=== PATIENT | female | born 1975 | race Caucasian/White ===

== ENCOUNTER 2017-06-05 21:22 | Emergency (ER) | payer OTHER, SELFPAY ==
[~2017-06-05] VITALS: Ht 165.1 cm; Wt 65.9 kg
[~2017-06-05 21:22] MED LIST: COLA100C5 PO; FERR1TAB8 PO; FOLI1TAB4 PO; NAPR500T3 PO; VITA100067 PO; VITA100L PO; VITA500T PO; VITMTA PO; ZOFR20TA PO
[2017-06-05] MEDS ORDERED: NAPROXEN 250 MG TAB PO ONE (22:45)
[2017-06-05 23:24] VITALS: BP 128/62
--- NOTE | 2017-06-06 06:58 | REP ---
Right foot four views : There is no fracture or dislocation. Mineralization and joint spaces are normal. There are no calcifications or foreign bodies. Impression: Negative right foot . Signed by Julián Frederick MD 06/06/2017 06:50 A
== END 2017-06-05 23:45 | disposition home or self-care (01) ==
LOC: M ED 21:22
DX: S90.31XA Contusion of right foot, initial encounter (principal); W23.1XXA Caught, crushed, jammed, or pinched between stationary objects, initial encounter; Y92.019 Unspecified place in single-family (private) house as the place of occurrence of the external cause; Y93.01 Activity, walking, marching and hiking; Y99.8 Other external cause status; Z87.891 Personal history of nicotine dependence; Z79.899 Other long term (current) drug therapy; Z88.0 Allergy status to penicillin

== ENCOUNTER 2017-06-20 21:45 | Emergency (ER) | payer SELFPAY ==
[~2017-06-20] VITALS: Ht 165.1 cm; Wt 65.9 kg
[2017-06-21] MEDS ORDERED: ROBA500T PO (01:21)
[2017-06-21] MEDS ORDERED: IBUP80TA PO (01:21)
[2017-06-21] MEDS ORDERED: NORCOTAB PO (01:21)
[2017-06-21] MEDS ORDERED: IBUPROFEN 800 MG TAB PO ONE (01:30)
[2017-06-21] MEDS ORDERED: METHOCARBAMOL 500 MG TAB PO ONE (01:30)
[2017-06-21] MEDS ORDERED: NORCO, ANEXSIA 5/325MG TABLET (HYDROcodone/ACETAMINOPHEN) PO ONE (01:30)
[2017-06-21 01:39] VITALS: BP 141/71
== END 2017-06-21 01:45 | disposition home or self-care (01) ==
LOC: M ED 21:45
DX: S23.3XXA Sprain of ligaments of thoracic spine, initial encounter (principal); F33.8 Other recurrent depressive disorders; X58.XXXA Exposure to other specified factors, initial encounter; Y92.9 Unspecified place or not applicable; Y99.9 Unspecified external cause status; Y93.9 Activity, unspecified; Z98.84 Bariatric surgery status; Z88.0 Allergy status to penicillin; Z79.899 Other long term (current) drug therapy

== ENCOUNTER 2017-06-23 13:03 | Observation (INO) | payer SELFPAY ==
[~2017-06-23] VITALS: Ht 165.1 cm; Wt 75.7 kg
[~2017-06-23 13:03] MED LIST changes: +IBUP80TA PO; +NORCOTAB PO; +ROBA500T PO
[2017-06-23] MEDS ORDERED: NAPR220C PO (13:20)
[2017-06-23] MEDS ORDERED: ONDANSETRON 4MG/2ML VIAL (J2405) IV ONE (14:00)
[2017-06-23] MEDS ORDERED: MORPHINE 4 MG/ML 1ML SYRINGE IV ONE (14:00)
[2017-06-23 14:01] LABS: INR 1.02
[2017-06-23 14:02] LABS: CONTROL LINE HCG INT CTR LINE PRESENT
[2017-06-23 14:04] LABS: ADD MORPHOLOGY? YES; BASO % 0.3 % (0.0-1.0); LARGE UNSTAINED CELL # 0.1 K/mm3 (0.0-0.4); LARGE UNSTAINED CELL % 1.3 % (0.0-4.0); LYMPH # 0.9 K/mm3 (1.5-4.5); LYMPH % 21.3 % (24.0-44.0); MEAN CORPUSCULAR HEMOGLOBIN 15.2 pg (27.0-33.0); MEAN CORPUSCULAR HGB CONC 25.2 g/dl (32.0-36.5); MEAN CORPUSCULAR VOLUME 60.4 fl (80.0-96.0); MONO # 0.2 K/mm3 (0.0-0.8); MONO % 4.6 % (0.0-5.0); NEUTROPHILS # 2.8 K/mm3 (1.8-7.7); NEUTROPHILS % 71.6 % (36.0-66.0); PLATELET COUNT, AUTOMATED 373 k/mm3 (150-450); RED CELL DISTRIBUTION WIDTH 18.5 % (11.5-14.5); WHITE BLOOD COUNT 3.9 K/mm3 (4.0-10.0)
[2017-06-23 14:10] LABS: ALBUMIN 3.7 GM/DL (3.2-5.2); ALBUMIN/GLOBULIN RATIO 1.23 (1.00-1.93); ALKALINE PHOSPHATASE 60 U/L (45-117); ALT/SGPT 16 U/L (12-78); ANION GAP 9 MEQ/L (8-16); AST/SGOT 15 U/L (15-37); BILIRUBIN,DIRECT 0.1 MG/DL (0.0-0.2); BILIRUBIN,TOTAL 0.5 MG/DL (0.2-1.0); BLOOD UREA NITROGEN 15 MG/DL (7-18); CALCIUM LEVEL 8.4 MG/DL (8.5-10.1); CARBON DIOXIDE LEVEL 22 MEQ/L (21-32); CHLORIDE LEVEL 113 MEQ/L (98-107); CREATININE FOR GFR 0.79 MG/DL (0.55-1.02); GLOMERULAR FILTRATION RATE > 60.0 (>58); GLUCOSE, FASTING 88 MG/DL (70-105); POTASSIUM SERUM 4.2 MEQ/L (3.5-5.1); SODIUM LEVEL 144 MEQ/L (136-145); TOTAL PROTEIN 6.7 GM/DL (6.4-8.2)
[2017-06-23 14:26] LABS: HYPOCHROMASIA 2+; MICROCYTOSIS 4+
[2017-06-23 14:27] LABS: ANISOCYTOSIS 2+; OVALOCYTES 1+; POIKILOCYTOSIS 1+; POLYCHROMASIA 1+; TEAR DROP CELLS 1+
[2017-06-23 14:28] LABS: TARGET CELLS 1+
[2017-06-23] MEDS ORDERED: ISOVUE-370 76% 100ML VIAL (Q9967) As Ordered ONE (14:33)
[2017-06-23] MEDS ORDERED: NAPR1TAB41 PO (15:09)
[2017-06-23] MEDS ORDERED: IBUP1TAB7 PO (15:09)
[2017-06-23] MEDS ORDERED: HYDR-3713 PO (15:09)
[2017-06-23] MEDS ORDERED: METH1TAB40 PO (15:09)
[2017-06-23] MEDS ORDERED: ACETAMINOPHEN TAB 650MG DOSE (2X325MG) PO PRN (17:15)
[2017-06-23] MEDS ORDERED: MORPHINE 2 MG/ML 1ML SYRINGE IV ONE (18:45)
[2017-06-23] MEDS ORDERED: LIDOCAINE 5% (LIDODERM) PATCH TD PRN (19:15)
[2017-06-23] MEDS ORDERED: MORPHINE 2 MG/ML 1ML SYRINGE IV PRN (19:15)
[2017-06-23] MEDS ORDERED: IPRATROPIUM 0.5MG/ALBUTEROL 2.5MG INH SOL UD 3ML (DUONEB)(J7620) NEB PRN (19:30)
[2017-06-23] MEDS ORDERED: **NOTE PATIENT COMMENT** MISC XX PRN (21:00)
--- NOTE | 2017-06-23 21:09 | HPE ---
DATE OF ADMISSION: 06/23/2017 CHIEF COMPLAINT: A 42-year-old female coming in complaining of shortness of breath with history of menometrorrhagia. HISTORY OF PRESENT ILLNESS: This is a 42-year-old female with significant past medical history of menometrorrhagia, comorbidities of depression and chronic anemia, who presents complaining of shortness of breath. The patient states that her shortness of breath is chronic in nature. She is chronically tired but she has a history of menometrorrhagia since the age of [age] years old, since starting her menses. The patient states that she has menses every 16 days and last for 7-8 days. Unfortunately, she utilizes two heavy maxi-pads, in addition, maxi-super tampon usage without control. She had four children; last child was born at the age of 19 via section. The patient denies any history of coagulopathy such as deep venous thrombosis (DVT) or pulmonary embolism (PE) in the past, or miscarriages. The patient does not know anything about her family as she is adopted. Otherwise, she denies any complaints other than chronic shortness of breath, chronically being tired, easy bruising, and clotting with menses. The patient had had blood transfusion in the past due to severe anemia, hemoglobin of three. The patient currently denies any chest pain. Based on her home medication, the patient seems to be taking ibuprofen and naproxen which we will recommend to limiting its use. The patient states that her last day of menses was 3-4 days ago. Currently she is not having blood flow. REVIEW OF SYSTEMS: 10-point review of systems is negative other than those described in the history of present illness (HPI). PAST MEDICAL HISTORY: 1. Menometrorrhagia. 2. Depression, for which currently she is not on any medications. PAST SURGICAL HISTORY: 1. Gastric bypass. 2. section. 3. Tubal ligation. 4. Breast reduction. SOCIAL HISTORY: The patient denies smoking. She quit 10 years. Denies any alcohol or drug abuse. FAMILY MEDICAL HISTORY: She does not know as she is adopted. ALLERGIES: She has allergic reaction to PENICILLIN, which was told to be hives, but she is not really sure. MEDICATIONS FROM HOME: - acetaminophen/hydrocodone 3/325 one tablet by mouth every six hours as needed for pain - ibuprofen 800 mg every six hours as needed for pain - methocarbamol 500 mg two tablets every six hours as needed for pain - naproxen 220 mg by mouth twice a day as needed for pain PHYSICAL EXAMINATION: VITAL SIGNS: Temperature initially was 97.4, heart rate last known is 56, respiratory rate was 16 on my examination, blood pressure 137/60, saturating 99-100% on room air. HEENT: Normocephalic. No trauma. Inspection of the eyes, nose and throat is within normal. Pupils equal, round, and reactive to light and accommodation. Mucosa is moist. NECK: Supple. No tracheal deviation. CARDIAC: S1, S2. Regular rate and rhythm. Pulses present. LUNGS: Equal air entry. I did not hear any wheezes, rales or rhonchi. ABDOMEN: Soft, nontender. Bowel sounds present. EXTREMITIES: Lower extremities with no significant pitting edema. NEUROLOGIC: The patient is currently awake, alert, and oriented times three. Cranial nerves grossly intact. Motor and sensory is intact. Normal mood and affect for current situation. EKG: The patient had sinus, heart rate 68. No ST elevation. DIAGNOSTIC STUDIES: The patient had WBC of 3.9, hemoglobin and hematocrit are 5.1 and 20.4, platelet count is 373. Complete metabolic profile is within normal except for chloride is 113, and calcium 8.4. Otherwise, complete metabolic profile is within normal. Lactate is within normal at 0.9. Cardiac enzymes are also within normal. BNP is normal. Lipase is within normal. HCG is negative. Coagulation study: The patient had INR, PT, and PTT all within normal as well. The patient has been typed and crossed, and she is planned to receive a total of two units of red blood cell transfusion. We will repeat hemoglobin and hematocrit and transfuse as necessary. IMAGING: The patient had a chest x-ray which showed, as per radiology, no acute cardiopulmonary changes. The patient also had vascular ultrasound of the lower extremities which showed no Doppler venous evidence of deep venous thrombosis (DVT) in the bilateral lower extremities. The patient also had CT angiogram; as per radiology showed no evidence of pulmonary embolism. Aorta without aneurysm or dissection. There is now pathologic sized mediastinal or hilar adenopathy. No bony abnormality. Lungs are clear. Abdominal CT as per radiology showed splenomegaly with a splenic length up to 14.1 cm and splenic index measuring 985, with normal range less than 480. She has splenomegaly. Arterial phase imaging limits evaluation of splenic architecture. No definite pathologic-sized abdominal or pelvic adenopathy. I see no ascites, colitis, abscess or free air. Gastric bypass is noted. No signs of appendicitis, diverticulitis or mass or other acute finding. Airway intact, and the bones are unremarkable. ASSESSMENT AND PLAN: This is a 42-year-old female with significant past medical history of menometrorrhagia, last day of menses was 2-3 days ago, who chronically has shortness of breath and fatigue. She is presenting complaining of fatigue and shortness of breath, noted to have hemoglobin of five. 1. Symptomatic anemia most likely secondary due to menometrorrhagia. The patient is receiving one unit of red blood cell transfusion at this time, and is awaiting for a second unit of blood transfusion. We will monitor her hemoglobin and hematocrit (H and H) and transfuse as needed with the goal of seven at this time. Telemetry, respiratory treatment as needed, oxygen therapy as needed. I did speak to Dr. Gonzalez, the obstetric ship manager, who did not believe that the patient needed to be evaluated in the hospital by his service. He recommends that the patient be seen as an outpatient and obstetrics/gynecology (DIRT CONTRACTOR) to be reconsulted as needed for any acute process. As Dr. Gonzalez is carbon cleaner, we will endorse to the following physician that he is available for consultation and emergent evaluation of the patient as per his recommendation. 2. Chronic pain. Avoid non-steroidal anti-inflammatory drugs (NSAIDs). Resume home regimen of hydrocodone/acetaminophen. 3. Splenomegaly. Most likely secondary to problem number one. May have outpatient followup and evaluation. 4. Sequential compression devices for deep venous thrombosis (DVT) prophylaxis.
[2017-06-23 21:45] VITALS: BP 143/74
[2017-06-23] MEDS: NORCO, ANEXSIA 5/325MG TABLET (HYDROcodone/ACETAMINOPHEN) PO PRN (22:42)
[2017-06-23] MEDS: IPRATROPIUM 0.5MG/ALBUTEROL 2.5MG INH SOL UD 3ML (DUONEB)(J7620) NEB SCH (23:50)
[2017-06-24] VITALS (8 sets, daily range): BP systolic 120–143; BP diastolic 61–88
[2017-06-24] MEDS: IPRATROPIUM 0.5MG/ALBUTEROL 2.5MG INH SOL UD 3ML (DUONEB)(J7620) NEB SCH (00:01)
[2017-06-24] MEDS: NORCO, ANEXSIA 5/325MG TABLET (HYDROcodone/ACETAMINOPHEN) PO PRN ×3 (05:16→21:04)
--- NOTE | 2017-06-24 07:35 | REP ---
CT ABDOMEN AND PELVIS WITH IV CONTRAST: 06/23/2017. Clinical history: Upper abdominal pain. Technique: The patient received a bolus of 100 mL of Isovue 370 scanning through the abdomen and pelvis. Coronal and sagittal reconstructions provided. Findings: No prior studies. CT abdomen: Lung bases are clear. There is no cardiomegaly, pericardial thickening or effusion. Small hiatal hernia. Gastric bypass my are seen. There is no hepatomegaly. There is one peripheral hypodense focus in the left lobe of the liver about 13 mm which could be a small hemangioma as it has some peripheral focus of enhancement in its lateral margin could be a proteinaceous cyst too in the posterior old lateral liver. There is a 10 mm low density nodule on image 28. There is no subcapsular hematoma, other nodule or mass, biliary dilatation or adjacent ascites. There is splenomegaly with the spleen measuring 14.1 x 5.1 x 13.7 cm giving calculated splenic index of 985. It has a heterogeneous enhancement consistent with arterial phase imaging. The aorta is without aneurysm or dissection. The celiac axis, SMA, renal arteries and the ARMANDO are grossly intact. Small bowel loops are fluid filled but not abnormally dilated. A few air-fluid levels in these nondilated bowel loops are seen. The colon shows scattered stool and gas. There is no evidence for colitis or diverticulitis on this study within the abdomen proper. Adrenal glands were normal. Gallbladder partially collapsed without calcified stone or mass. Pancreas unremarkable. The bilateral kidneys show a lower pole cyst on the right about 2.2 cm. No hydronephrosis, hydroureter, ureteral stone or solid renal mass. No nephrolithiasis. No periaortic pathologic sized adenopathy in the upper abdomen. No mesenteric infiltration or edema. The lung windows show no perforation or free air. CT pelvis: The bone windows show lumbar and lower thoracic spine, the posterior elements and the visualized ribs all grossly intact. The lumbosacral junction, sacrum, SI joints, pelvis, hips and ischium were without acute finding. Bladder partially filled. The distal ureters are without dilatation or stone. No bladder wall thickening mass or stone. Uterus anteverted, not enlarged. Small bowel loops fluid-filled with a few air-fluid levels but not dilated in the pelvis. No inflammatory changes in the mesentery. No definite colitis or diverticulitis in the deep pelvis with the distal left colon, sigmoid and rectum intact. No ventral or inguinal hernia nor pathologic sized inguinal adenopathy. Impression: 1. Splenomegaly with a splenic length up to 14.1 cm and splenic index measurement 985 with the normal range less than 480. Arterial phase imaging limits evaluation of splenic architecture. 2. No definite pathologic sized abdominal or pelvic adenopathy. I see no ascites, colitis, abscess or free air. 3. Gastric bypass noted. No signs of appendicitis, diverticulitis, mass or other acute finding. 4. Aortic intact and the bones unremarkable. Signed by Chandler Owens MD 06/24/2017 08:05 A
--- NOTE | 2017-06-24 07:58 | ECGEPIP ---
Stationary ECG Study [facility] - ED Test Date: 2017-06-23 Pat Name: BABATUNDE ALVAREZ Department: Room: [place] [address] Gender: F Journeyman Pipe Welder: james : 1975 Requested By: Boom Barnhart Order Number: [id number] Reading MD: Boom Soriano Measurements Intervals [place] Rate: 68 P: 52 OH: 146 QRS: 26 QRSD: 76 T: 33 QT: 388 QTc: 415 Interpretive Statements SINUS RHYTHM Electronically Signed On 06-24-2017 7:57:54 EDT by Boom Soriano
--- NOTE | 2017-06-24 08:18 | REP ---
CERVICAL SPINE COMPLETE: 06/23/2017. Comparison: CT cervical spine 09/02 before. Clinical history: neck pain. Nine views are provided. Only very minimal loss of lordosis on the lateral view with slight decreased range of motion with flexion and extension and better motion in the upper and lower cervical region, however there is no instability. The C1-2 relationship is stable on all views. The craniocervical junction and cervical thoracic junction are normal. Prevertebral swelling. Dens and lateral masses align normally on the open-mouth views. Metallic jewelry overlies the tongue and rule lower lip. There is no torticollis on the AP view of the spinous processes, transverse processes, posterior elements are unremarkable. The foramina are adequate bilaterally. Impression: 1. Slight loss of lordosis and range of motion which may reflect some spasm but otherwise negative cervical spine series Signed by Chandler Owens MD 06/24/2017 08:10 A
[2017-06-24] MEDS ORDERED: MAALOX 30 ML SUSP *UDC PO PRN (09:00)
[2017-06-24 09:02] LABS: MEAN CORPUSCULAR HGB CONC 29.3 g/dl (32.0-36.5); PREVIOUS RED BLOOD COUNT 3.37 M/mm3 (3.50-5.50); RED CELL DISTRIBUTION WIDTH 25.2 % (11.5-14.5); WHITE BLOOD COUNT 4.6 K/mm3 (4.0-10.0)
[2017-06-24 09:05] LABS: MEAN CORPUSCULAR VOLUME 68.2 fl (80.0-96.0)
[2017-06-24 09:08] LABS: FERRITIN 2 NG/ML (8-252); PERCENT SATURATION 4.8 % (13.2-45.0); TOTAL IRON BINDING CAPACITY 421 UG/DL (250-450)
[2017-06-24] MEDS ORDERED: SLF 3 ML SYR IV PRN (09:30)
[2017-06-24 09:31] LABS: REASON FOR REVIEW ANEMIA / RBC MORPH
--- NOTE | 2017-06-24 10:01 | REP ---
LUMBAR SPINE PARTIAL: 06/23/2017. Comparison: Complete lumbar x-ray 02/14/2010. Clinical history: Back pain. Findings: AP view shows no scoliosis. There are left upper quadrant surgical clips and staple lines in the GE junction region. Pedicles, spinous and transverse processes are intact. Contrast in collecting systems and ureters noted. There is very slight hydroureter proximally and an extrarenal pelvis with normal right renal calyces. Vertebral body heights and disc space heights intact. There is no spondylolysis or spondylolisthesis. Minor hypertrophic facet changes at L5-S1. No compression deformities. Impression: 1. Negative lumbar spine for any acute bony findings, malalignment, spondylolysis or other significant abnormality. 2. Incidental note of mild proximal hydroureter with an extrarenal pelvis on the right side. The calyces are fairly sharply defined however. Signed by Chandler Owens MD 06/24/2017 05:55 P
[2017-06-24 10:13] LABS: RETICULOCYTE CALCULATED 1.5 % (0.5-1.5)
[2017-06-24] MEDS: PANTOPRAZOLE 40MG TAB (PROTONIX) PO SCH (10:40)
[2017-06-24] MEDS: SENOKOT S TAB PO SCH ×2 (11:46→21:03)
[2017-06-24] MEDS: FERROUS SULFATE 325MG TAB PO SCH ×3 (11:46→21:03)
[2017-06-24] MEDS: ASCORBIC ACID 500 MG TAB PO SCH ×3 (11:46→21:03)
[2017-06-24] MEDS: SLF 3 ML SYR IV SCH ×2 (13:48→21:04)
[2017-06-24] MEDS ORDERED: FUROSEMIDE 40 MG/4 ML VIAL (J1940) IV ONE (14:00)
[2017-06-24] MEDS ORDERED: ONDANSETRON 4MG/2ML VIAL (J2405) IV PRN (16:15)
[2017-06-24] MEDS: MULTIVITAMINS/MINERALS THERAP 1 TAB PO SCH (16:33)
--- NOTE | 2017-06-24 17:08 | IPN ---
DATE: 06/24/2017 SUBJECTIVE: Patient seen and examined. Admitted overnight. Continued to report epigastric discomfort, chest discomfort, back discomfort, shortness of breath. Denies any fevers, chills, chest pain, pressure or discomfort. VITAL SIGNS: Temperature 99.3, pulse 55, respirations 18, blood pressure 142/80, pulse oximetry 97% on two liters nasal cannula. LABORATORY DATA: WBC 4.6, hemoglobin and hematocrit 8.4 over 28.8, platelets 328. Chemistry: Sodium 144, potassium 4.2, chloride 113, bicarbonate 22, BUN 15, creatinine 0.79, lactic acid 0.9. Cardiac enzymes negative times two. BNP 80.5. PHYSICAL EXAMINATION: GENERAL: Patient alert and oriented times three, in no acute distress. HEENT: Normocephalic, atraumatic. PULMONARY: Bilaterally clear to auscultation. CARDIAC: Regular rate and rhythm. Normal S1, S2. ABDOMEN: Soft, nontender. Positive bowel sounds. EXTREMITIES: No clubbing, cyanosis or edema. NEUROLOGIC: No focal deficits. Cranial nerves II through XII grossly intact. Able to move all four extremities. ASSESSMENT AND PLAN: This is a 52-year-old female patient with underlying medical history of menometrorrhagia; last day of menses was 2-3 days ago, who currently is not bleeding, who also has chronic shortness of breath and fatigue. The patient presented with complaint of fatigue and shortness of breath and also has some back pain and chest pain with a hemoglobin of five. The patient also has a history of depression, gastric bypass. 1. Symptomatic anemia, likely secondary to menometrorrhagia. The patient was transfused a total of three units, and will monitor the patient's hemoglobin and hematocrit. The patient's period currently has stopped and is not bleeding anymore. We will monitor the patient on telemetry. Dr. Gonzalez from obstetrics and gynecology (LAST CODE STRIPER) was initially consulted and had gone to see the patient, but patient has refused a male doctor. Subsequently unable to provide sufficient gynecological care to the patient given there is no female doctor available at this point. As per Dr. Gonzalez, after reviewing all the information including ultrasound, the patient does have thickening of the uterine lining with enlarged uterus. Will need further gynecological workup as outpatient, and also to rule out underlying malignancy as well. Once again, the patient has refused gynecological followup. 2. Chronic pain. Continue current regimen. 3. Severe iron-deficiency anemia. Patient is bone-marrow suppressed given low reticulocyte count, likely due to severe iron-deficiency anemia, given all other cell lines seem to be okay. Iron supplementation with vitamin C and bowel regimen has been prescribed. Will monitor folic acid, B12. 4. History of gastric bypass. Will monitor patient's vitamin D, along with other vitamins, and give multivitamin and supplementations as ordered. 5. Epigastric discomfort, unknown etiology. Maalox, pain regimen was given. CT abdomen and CT of chest have been appreciated. Will get ultrasound of the abdomen as well, and urinalysis (UA) is negative. 6. Chest pain. Cardiac enzymes negative times two. Electrocardiogram (EKG) is negative. CT angiogram has been negative for pulmonary embolism (PE). We will give trial of Maalox and Protonix and pain medication. We will continue to monitor closely. 7. Back pain. As per patient, is acute thoracic back pain. Given, along with anemia is concerning for malignancy, we will get MRI of the back with contrast. 8. Splenomegaly. Most likely secondary to anemia. Will need outpatient followup and evaluation. 9. Depression, supportive care. 10. Deep venous thrombosis (DVT) prophylaxis. Given patient admitted with severe critical anemia, we will place the patient on sequential compression devices and early ambulation. [facility]
--- NOTE | 2017-06-24 19:10 | REPUSA ---
CLINICAL HISTORY: Abdominal pain, rule out hydronephrosis. TECHNIQUE: Realtime sonographic images were obtained in multiple projections. COMMENTS: The liver is of uniform echo texture without evidence of mass or defect. There is no intra or extrah epatic biliary ductal dilatation. The common bile duct measures 4 mm. The gallbladder shows 2 small stones. The gallbladder wall is not thickened and there is no pericholecystic fluid. The patient h as tenderness in the midline. There is no abdominal ascites. The visualized portions of abdominal aorta present no abnormalities. The aorta measures 1.9 cm below the diaphragm, 1.9 cm at mid segment and 1.7 cm at the bifurcation. The pancreatic tail is not well visualized due to bowel gases. The visualized portions of the pancre as are unremarkable. The spleen is of uniform echo texture and appears enlarged measuring 15.8 cm. The right kidney measures 12.5 x 6.1 x 4 cm and the left kidney measures 12.8 x 5.3 x 5.1 cm and appe ars lobulated. Both kidneys are free of hydronephrosis. IMPRESSION: 1. Gallbladder stones. 2. Splenomegaly. 3. Lobulated left kidney.
[2017-06-24] MEDS ORDERED: MORPHINE 2 MG/ML 1ML SYRINGE IV PRN (19:15)
--- NOTE | 2017-06-24 21:51 | HPE ---
DATE OF ADMISSION: 06/23/2017 ADDENDUM: To the history and physical, on the assessment and plan portion, please add: The patient also complained of some back pain, which is located in the thoracic region. We will further evaluate with x-ray of the spine for further evaluation and provide pain management. If the patient's symptom does not improve with pain management or abnormality of the x-ray, we will further evaluate with further radiologic study as needed, and consult specialists as needed.
[2017-06-25 04:00] VITALS: BP 119/59
[2017-06-25] MEDS: SLF 3 ML SYR IV SCH ×2 (04:26→14:49)
[2017-06-25 05:27] LABS: MEAN CORPUSCULAR HEMOGLOBIN 21.1 pg (27.0-33.0); MEAN CORPUSCULAR HGB CONC 30.1 g/dl (32.0-36.5); MEAN CORPUSCULAR VOLUME 70.1 fl (80.0-96.0); RED CELL DISTRIBUTION WIDTH 25.4 % (11.5-14.5); WHITE BLOOD COUNT 5.2 K/mm3 (4.0-10.0)
[2017-06-25 05:41] LABS: ANION GAP 9 MEQ/L (8-16); BLOOD UREA NITROGEN 13 MG/DL (7-18); CALCIUM LEVEL 8.5 MG/DL (8.5-10.1); CARBON DIOXIDE LEVEL 25 MEQ/L (21-32); CHLORIDE LEVEL 111 MEQ/L (98-107); CREATININE FOR GFR 0.64 MG/DL (0.55-1.02); GLOMERULAR FILTRATION RATE > 60.0 (>58); GLUCOSE, FASTING 96 MG/DL (70-105); MAGNESIUM LEVEL 2.5 MG/DL (1.8-2.4); POTASSIUM SERUM 3.9 MEQ/L (3.5-5.1); SODIUM LEVEL 145 MEQ/L (136-145)
--- NOTE | 2017-06-25 06:42 | REP ---
PELVIC AND ENDOVAGINAL PROBE ULTRASOUND: 06/24/2017. Clinical history: Anemia. Heavy menses. Comparison: CT abdomen and pelvis 06/23/2017. Findings: The bladder is underfilled measuring only 6.2 x 3.8 x 1.6 cm. The uterus is anteverted and it measures 10.3 x 4.3 x 6.1 cm in greatest diameters. Endometrial stripe has a three line appearance and thickness of 10.9 mm. There is no fluid in the endometrial cavity or endocervical canal. Nabothian cysts are seen in the cervix and lower uterine segment. No uterine mass. The right ovary is 3.5 x 2.4 x 2.2 cm and shows Doppler tracing with resistive index of 0.53. The left ovary is 4 x 3.4 x 3.4 cm and also shows resistive index of 0.52. There is a left ovarian cyst, 2.6 x 2.6 x 2 cm. No pelvic free fluid. Impression: 1. Uterus anteverted with normal endometrial stripe and three line appearance. Thickness was 10.9 mm for the stripe. No fluid in the endometrial cavity or endocervical canal. 2. Left ovary shows a 2.6 x 2.6 cm simple cyst. Normal Doppler tracings for both ovaries. No free fluid. Signed by Chandler Owens MD 06/25/2017 07:53 A
[2017-06-25 07:56] VITALS: BP 133/62
[2017-06-25] MEDS: ASCORBIC ACID 500 MG TAB PO SCH ×2 (08:51→16:00)
[2017-06-25] MEDS: FERROUS SULFATE 325MG TAB PO SCH ×2 (08:51→16:00)
[2017-06-25] MEDS: NORCO, ANEXSIA 5/325MG TABLET (HYDROcodone/ACETAMINOPHEN) PO PRN (08:51)
[2017-06-25] MEDS: SENOKOT S TAB PO SCH (08:52)
[2017-06-25] MEDS: MULTIVITAMINS/MINERALS THERAP 1 TAB PO SCH (08:52)
[2017-06-25] MEDS: PANTOPRAZOLE 40MG TAB (PROTONIX) PO SCH (08:52)
[2017-06-25] MEDS ORDERED: VITAMIN D 1,000 INTERNATIONAL UNITS TABLET PO SCH (09:00)
--- NOTE | 2017-06-25 10:12 | CR ---
DATE OF CONSULTATION: Dr. Gonzalez dictating Beth Bonilla after request from Dr. Ortiz, the hospitalist for consult history of menorrhagia and chronic anemia. Noted that most of the history was obtained after review of the patient's chart and speaking to Dr. Ortiz as the patient did not want to be seen by a male sales promotion representative. Even with me having the nurse in the room, the patient would not communicate and tell me her full stories. Beth is a 42-year-old female, 4, para 4. She had section approximately 17 years ago. She does have a chronic history of menorrhagia dating back to her menarche at age 14 and which has been getting progressively worse. She does not see any HEADLIGHT ADJUSTER for this issue. She stated that she does not like to see doctors. She has been treated multiple times for chronic anemia with blood transfusion. She also has a significant history of depression. She presented this admission because of shortness of breath and what she described by epigastric pain. Upon evaluation, she was found to be severely anemic with hemoglobin of 5.1, hematocrit 20.4. She had a CT scan. It was essentially unremarkable. She also had an ultrasound today, which was reviewed by me and also reported to the hospitalist. Her uterus is 10.3 cm with an endometrial stripe of 10.9. The patient just ended cycle 2-3 days ago, currently not bleeding. Did refuse exam by me today. Her medications consist of ibuprofen, naproxen, methocarbamol 500 mg. ALLERGIES to PENICILLIN. In the hospital, the patient received 2 units of packed red blood cells (RBCs). Her latest hemoglobin and hematocrit was 8.4/28.8. Given that this patient is refusing a physical exam and one could not be done, it is my impression at this point that she does have menometrorrhagia with chronic anemia. At this point, she does not merit any acute HEADLIGHT ADJUSTER care but given the size of the uterus and her endometrial lining and her history of menometrorrhagia, she would benefit from an outpatient HEADLIGHT ADJUSTER evaluation. Given that she does not want to see a male provider, I did recommend to the hospitalist than that upon discharge that she be sent to a female sales promotion representative to possibly evaluate her endometrial stripe issues. At this point, I am signing off of this patient's case unless there is an emergent issue or she changes her mind and wishes to see a male provider at this point.
[2017-06-25 10:32] LABS: VITAMIN B12 LEVEL 238 PG/ML (247-911)
[2017-06-25 10:33] LABS: FOLATE 14.2 NG/ML (>5.4)
--- NOTE | 2017-06-25 11:03 | REP ---
MR THORACIC SPINE WITHOUT CONTRAST: HISTORY: Back pain. There is no disc bulge or herniation. The spinal canal and neural foramina are patent. The spinal cord is normal in signal intensity. Decreased signal intensity on T2-weighted images is present in the T11-12 and T12-L1 intervertebral discs. The discs are decreased in height. These findings are consistent with disc degeneration. A hemangioma is present in the T2 vertebral body. Normal signal intensity is present in the remaining thoracic vertebral bodies. IMPRESSION: There is no disc bulge or herniation. Signed by Yoandy Eng MD 06/25/2017 11:04 A
[2017-06-25 12:00] VITALS: BP 138/67
[2017-06-25] MEDS ORDERED: VITMTA PO (14:01)
[2017-06-25] MEDS ORDERED: VITA500T53 PO (14:01)
[2017-06-25] MEDS ORDERED: SENN1TAB2 PO (14:01)
[2017-06-25] MEDS ORDERED: VITA500T PO (14:01)
[2017-06-25] MEDS ORDERED: FERR1TAB8 PO (14:01)
[2017-06-25] MEDS ORDERED: VITAD1000T PO (14:01)
[2017-06-25] MEDS ORDERED: CYANOCOBALAMIN 1,000 MCG/ML VIAL (J3420) IM ONE (15:00)
--- NOTE | 2017-06-25 17:04 | DSES ---
DATE OF ADMISSION: 06/23/2017 DATE OF DISCHARGE: 06/25/2017 PRIMARY CARE PROVIDER: Initially none, arrangements are made to find the patient a primary care provider. STORM WINDOW INSTALLER: Dr. Gonzalez is consulted but the patient refused to be seen by Dr. Gonzalez. Arrangements are made for the patient to followup with a female concrete batching plant operator as outpatient. FINAL DIAGNOSES: 1. Symptomatic anemia secondary to menometrorrhagia. 2. Chronic pain. 3. Severe iron deficiency anemia. 4. History of gastric bypass and noncompliance. 5. Epigastric discomfort. 6. Vitamin B12 deficiency. 7. Vitamin D deficiency. 8. Chronic back pain. 9. Splenomegaly. 10. Depression. HISTORY OF PRESENT ILLNESS: This is a 42-year-old female patient with underlying medical history of menometrorrhagia, comorbidity of depression, chronic anemia, also had a gastric bypass, and also has chronic shortness of breath. The patient also has chronic fatigue, history of menometrorrhagia at age 14 since starting her menses. The patient states that she has menses every 16 days and lasting 7-8 days. The patient also utilizes two heavy maxi-pads in addition to maxi-super tampon usage without control and she has four children. Last child was born with (C) section. Denies any history of coagulopathy or bleeding disorder, deep vein thrombosis (DVT), pulmonary embolism (PE) or miscarriages. The patient does not know anything about her family. She was adopted and has not seen a doctor in years. HOSPITAL COURSE: The patient was admitted to the hospital. Cardiac enzymes were done. EKG was normal. CT angiogram of the chest was negative for pulmonary embolism (PE). CT of the abdomen shows splenomegaly. MRI of the thoracic spine, x-ray of the cervical and lumbar spine were appreciated. Ultrasound pelvis appreciated, shows uterine enlargement. Case was discussed with Dr. Gonzalez, boiler inspector, who recommended outpatient workup for menometrorrhagia. Ultrasound of the abdomen was also done. Anemia workup was sent. The patient was found to be B12 deficient, iron deficient as well as vitamin D deficiency. The patient is not compliant with vitamins after gastric bypass. She had gastric bypass in 2011 and anemia problem seems to be worsening following which around 2014 and until today. Counseling service was provided. The patient was transfused a total of four units of packed red blood cells (PRBC) with appropriate response. Currently, hemoglobin and hematocrit are stable. The patient is comfortable with minimal symptoms and ready for discharge for further workup as outpatient. Telemetry has been appreciated during the hospital stay. VITAL SIGNS: Temperature is 98.1, pulse 61, respiratory rate 19, blood pressure 138/67, pulse oximetry 100% on room air. GENERAL: The patient is alert and oriented times three, in no acute distress. HEENT: Normocephalic, atraumatic. PULMONARY: Bilaterally clear to auscultation. CARDIAC: Regular rate and rhythm with normal S1, S2. ABDOMEN: Soft, nontender. Positive bowel sounds. EXTREMITIES: No clubbing, cyanosis, or edema. LABORATORY DATA: WBC 5.2, hemoglobin and hematocrit 9.3/30.8, platelets 299, reticulocyte count 1.5. Sodium 145, potassium 3.9, chloride 111, bicarbonate 25, BUN 13, creatinine 0.6. DISCHARGE MEDICATIONS: - vitamin C 500 mg by mouth twice a day - vitamin B12 2000 mcg by mouth daily - ferrous sulfate 325 mg by mouth twice a day - multivitamin one tablet by mouth daily - Senna Plus one tablet by mouth twice a day - vitamin D 2000 units by mouth daily The patient's home medications that were continued: - [place] 5/325 by mouth every six hours as needed - ibuprofen 800 mg by mouth as needed every six hours - methocarbamol 1000 mg by mouth every six hours as needed DISCHARGE INSTRUCTIONS: The patient is instructed to followup with primary care provider in 10 days and concrete batching plant operator in 10 days. Return to the hospital if symptoms worsen.
[2017-06-26] MEDS ORDERED: CYANOCOBALAMIN 500 MCG TAB PO SCH (09:00)
--- NOTE | 2017-06-26 09:36 | REP ---
PA CHEST: 06/23/2017. Comparison: 12/07/2011, 03/03/2008. Clinical history: Chest pain. Findings: Lungs are well inflated and without infiltrate, effusion, atelectasis or mass. Heart, mediastinal and hilar contours are normal. Aorta is normal for age and the airway midline. Bony thorax shows no focal lesion. No free air under the diaphragm. Impression: 1. No acute cardiopulmonary change. Signed by Chandler Owens MD 06/26/2017 10:28 A
--- NOTE | 2017-06-26 09:36 | REP ---
BILATERAL LOWER EXTREMITY DOPPLER VENOUS ULTRASOUND: Comparison: 07/21/2009 right lower extremity venous ultrasound. Clinical history: Swelling, evaluate DVT of the lower extremities Technique: The deep venous system of the bilateral lower extremities is evaluated with tavares scale imaging, compression ultrasound, color imaging and duplex Doppler interrogation. Examination from the groin through the popliteal fossa into the proximal calf. Findings: There is full compressibility from the common femoral vein in the inguinal region through the popliteal vein on both sides. Color imaging confirms patency throughout the course of the deep venous system. There is respiratory variation and augmented flow at all levels. Impression: 1. No Doppler venous ultrasound evidence of DVT in the bilateral lower extremities. Signed by Chandler Owens MD 06/26/2017 10:28 A
--- NOTE | 2017-06-26 09:39 | REP ---
CTA chest: 06/23/2017. Comparison: Portable chest 06/23/2017, 12/07/2011. Clinical history: Chest pain, dyspnea. Technique: Bolus of 100 mL of Isovue [address] pulmonary angiogram protocol and both coronal and sagittal thick slab reconstructions provided. Findings: The lung bermeo are well inflated. There is very minimal dependent atelectatic change posteriorly mid and lower lung zones without effusion, pleural thickening, pleural plaque or calcification. No significant nodules, mass, acute infiltrates or atelectasis. No pneumothorax or pneumomediastinum. No definite bronchiectasis. Heart is not enlarged. There is no pericardial thickening or effusion. The aorta is without aneurysm or dissection. The main, right and left pulmonary arteries were unremarkable. The lobar, segmental and subsegmental arteries are also without filling defects. There are a few small nodes in the mediastinum which are not pathologic by CT size criteria. No pathologic sized mediastinal or hilar adenopathy. No axillary or supraclavicular mass. Tracheal airway intact. Bone windows show sternum, manubrium, clavicles, scapulae, humeral heads, ribs and the thoracic spine without acute finding or destructive lesions. Please see the CT abdomen and pelvis for discussion of the abdominal contents. Impression: 1. No CT evidence of pulmonary thromboembolism. 2. Aorta without aneurysm or dissection. There is no pathologic sized mediastinal or hilar adenopathy. No bony abnormality. Lungs clear. Signed by Chandler Owens MD 06/26/2017 10:29 A
== END 2017-06-25 16:35 | disposition home or self-care (01) ==
LOC: M ED 13:03 → M ED INP 17:52 → M PCU 22:19
PROVIDERS: ADMIT Internal Medicine; ATTEND Hospitalist
DX: D50.9 Iron deficiency anemia, unspecified (principal); N92.1 Excessive and frequent menstruation with irregular cycle; G89.29 Other chronic pain; Z98.84 Bariatric surgery status; Z91.19 Patient's noncompliance with other medical treatment and regimen; R10.13 Epigastric pain; E53.8 Deficiency of other specified B group vitamins; E55.9 Vitamin D deficiency, unspecified; M54.6 Pain in thoracic spine; R16.1 Splenomegaly, not elsewhere classified; F32.9 Major depressive disorder, single episode, unspecified; R53.82 Chronic fatigue, unspecified; R06.02 Shortness of breath; R07.9 Chest pain, unspecified; Z87.891 Personal history of nicotine dependence; Z88.0 Allergy status to penicillin
CPT/HCPCS: 36415; 36430; 71010; 71275; 72052; 72100; 72146; 74177; 76700; 76830; 76856; 80048; 80076; 81001; 82306; 82550; 82553; 82607; 82728; 82746; 83010; 83550; 83605; 83615; 83690; 83735; 83880; 84703; 85014; 85018; 85025; 85027; 85044; 85610; 85730; 86850; 86900; 86901; 86920; 93005; 93041; 93970; 93976; 94760; 96372; 96374; 96375; 96376; 99285; J1940; J2405; J3420; P9016; Q9967

== ENCOUNTER 2018-03-27 16:38 | Observation (INO) | payer SELFPAY ==
[2018-03-27 18:17] LABS: BASO % 0.2 % (0.0-1.0); EOS # 0.1 10^3/uL (0.0-0.50); EOS % 1.2 % (0.0-3.0); HEMATOCRIT 25.3 % (36.0-47.0); IMMATURE GRANULOCYTE % 0.4 % (0-3.0); LYMPH # 0.9 10^3/uL (1.5-4.5); LYMPH % 10.9 % (24.0-44.0); MEAN CORPUSCULAR HEMOGLOBIN 16.9 pg (27.0-33.0); MEAN CORPUSCULAR HGB CONC 27.3 g/dl (32.0-36.5); MEAN CORPUSCULAR VOLUME 61.9 fl (80.0-96.0); MONO # 0.4 10^3/uL (0.0-0.8); MONO % 4.6 % (0.0-5.0); NEUTROPHILS # 7.1 10^3/uL (1.8-7.7); NEUTROPHILS % 82.7 % (36.0-66.0); PLATELET COUNT, AUTOMATED 459 10^3/uL (150-450); RED BLOOD COUNT 4.09 10^6/uL (4.00-5.40); RED CELL DISTRIBUTION WIDTH 19.9 % (11.5-14.5); WHITE BLOOD COUNT 8.6 10^3/uL (4.0-10.0)
[2018-03-27 18:21] LABS: HEMOGLOBIN 6.9 g/dl (12.0-15.5)
[2018-03-27 18:54] LABS: ANION GAP 6 MEQ/L (8-16); BLOOD UREA NITROGEN 13 MG/DL (7-18); CALCIUM LEVEL 9.2 MG/DL (8.5-10.1); CARBON DIOXIDE LEVEL 23 MEQ/L (21-32); CHLORIDE LEVEL 112 MEQ/L (98-107); CREATININE FOR GFR 0.72 MG/DL (0.55-1.30); FREE T4 0.97 NG/DL (0.76-1.46); GLOMERULAR FILTRATION RATE > 60.0 (>58); GLUCOSE, FASTING 90 MG/DL (70-100); MAGNESIUM LEVEL 2.2 MG/DL (1.8-2.4); POTASSIUM SERUM 4.3 MEQ/L (3.5-5.1); SODIUM LEVEL 141 MEQ/L (136-145)
[2018-03-27 19:20] LABS: LACTIC ACID SEPSIS PROTOCOL 0.9 MMOL/L (0.4-2.0)
[2018-03-27 19:37] LABS: CONTROL LINE HCG INT CTR LINE PRESENT; HCG, SERUM QUALITATIVE NEGATIVE (NEGATIVE)
[2018-03-27 19:40] LABS: CHLAMYDIA DNA AMPLIFICATION NEGATIVE (NEGATIVE); GC DNA AMPLIFICATION NEGATIVE (NEGATIVE)
[2018-03-27 19:52] LABS: KETONE, URINE AUTO RFX NEGATIVE (NEGATIVE); LEUKOCYTE ESTERASE UR AUTO RFX NEGATIVE (NEGATIVE); MUCUS, URINE RFX SMALL (NEGATIVE); NITRITE, URINE AUTO RFX NEGATIVE (NEGATIVE); RBC, URINE AUTO RFX 1 /HPF (0-3); SPECIFIC GRAVITY UR AUTO RFX 1.012 (1.002-1.035); SQUAM EPITHELIAL CELL UR AURFX 0 /HPF (0-6); WBC, URINE AUTO RFX 0 /HPF (0-3)
[2018-03-27] MEDS ORDERED: ACETAMINOPHEN TAB 650MG DOSE (2X325MG) PO (20:15)
[2018-03-27] MEDS ORDERED: ALBUTEROL SULFATE 2.5 MG/0.5 ML INH NEB SOLN INH (20:15)
[2018-03-27 20:30] LABS: IMMEDIATE SPIN CROSSMATCH 1 2
[2018-03-27 20:46] LABS: FERRITIN 2 NG/ML (8-252); IRON (FE) 11 UG/DL (50-170); PERCENT SATURATION 2.5 % (13.2-45.0); TOTAL IRON BINDING CAPACITY 437 UG/DL (250-450)
[2018-03-27 20:54] LABS: RETIC HEMOGLOBIN EQUIVALENT 17.5 pg (24-36); RETICULOCYTE # 52.8 10^9/L (17-77); RETICULOCYTE % 1.3 % (0.5-1.5)
[2018-03-27] MEDS: SENOKOT S TAB PO ×2 (21:00→23:10)
[2018-03-27] MEDS: KETOROLAC TROMETHAMINE 10 MG TAB PO (23:11)
[2018-03-28] MEDS ORDERED: SLF 3 ML SYR IV (00:15)
[2018-03-28 05:36] LABS: BASO % 0.5 % (0.0-1.0); EOS # 0.1 10^3/uL (0.0-0.50); EOS % 3.4 % (0.0-3.0); HEMATOCRIT 27.8 % (36.0-47.0); LYMPH # 1.3 10^3/uL (1.5-4.5); LYMPH % 33.1 % (24.0-44.0); MEAN CORPUSCULAR HEMOGLOBIN 18.6 pg (27.0-33.0); MEAN CORPUSCULAR HGB CONC 28.8 g/dl (32.0-36.5); MEAN CORPUSCULAR VOLUME 64.7 fl (80.0-96.0); MONO # 0.4 10^3/uL (0.0-0.8); NEUTROPHILS # 2.1 10^3/uL (1.8-7.7); PLATELET COUNT, AUTOMATED 404 10^3/uL (150-450); WHITE BLOOD COUNT 3.9 10^3/uL (4.0-10.0)
[2018-03-28 05:54] LABS: ALBUMIN 2.9 GM/DL (3.2-5.2); ALBUMIN/GLOBULIN RATIO 0.88 (1.00-1.93); ALKALINE PHOSPHATASE 60 U/L (45-117); ALT/SGPT 24 U/L (12-78); ANION GAP 5 MEQ/L (8-16); AST/SGOT 18 U/L (7-37); BILIRUBIN,TOTAL 1.2 MG/DL (0.2-1.0); BLOOD UREA NITROGEN 15 MG/DL (7-18); CALCIUM LEVEL 8.4 MG/DL (8.5-10.1); CARBON DIOXIDE LEVEL 26 MEQ/L (21-32); CHLORIDE LEVEL 113 MEQ/L (98-107); CREATININE FOR GFR 0.66 MG/DL (0.55-1.30); GLOMERULAR FILTRATION RATE > 60.0 (>58); GLUCOSE, FASTING 92 MG/DL (70-100); MAGNESIUM LEVEL 2.2 MG/DL (1.8-2.4); POTASSIUM SERUM 4.2 MEQ/L (3.5-5.1); SODIUM LEVEL 144 MEQ/L (136-145); TOTAL PROTEIN 6.2 GM/DL (6.4-8.2)
[2018-03-28] MEDS: SLF 3 ML SYR IV ×2 (06:00→11:40)
[2018-03-28] MEDS: SENOKOT S TAB PO (09:00)
[2018-03-28] MEDS: PANTOPRAZOLE 40MG TAB (PROTONIX) PO (09:10)
[2018-03-28] MEDS: IRON SUCROSE 500 MG in NS 250 ML IV (11:34)
== END 2018-03-28 16:50 | disposition home or self-care (01) ==
LOC: M PCU 03-28 10:43 → M ED 16:38 → M ED INP 20:06 → M PCU 22:20
DX: R42 Dizziness and giddiness (principal); D62 Acute posthemorrhagic anemia; N92.0 Excessive and frequent menstruation with regular cycle; N93.8 Other specified abnormal uterine and vaginal bleeding; D50.9 Iron deficiency anemia, unspecified; J45.909 Unspecified asthma, uncomplicated; F32.9 Major depressive disorder, single episode, unspecified; G43.909 Migraine, unspecified, not intractable, without status migrainosus; Z98.84 Bariatric surgery status; Z88.0 Allergy status to penicillin; Z87.891 Personal history of nicotine dependence
CPT/HCPCS: J1756

== ENCOUNTER 2018-08-15 14:01 | Emergency (ER) | payer MEDICAID, SELFPAY ==
[2018-08-15] MEDS: ONDANSETRON 4 MG ORAL DISINTEGRATING TAB (Q0162 PER 1MG) PO (17:14)
[2018-08-15] MEDS: METHOCARBAMOL 500 MG TAB PO (17:14)
== END 2018-08-15 18:04 | disposition home or self-care (01) ==
LOC: M ED 14:01
DX: G43.909 Migraine, unspecified, not intractable, without status migrainosus (principal); S00.83XA Contusion of other part of head, initial encounter; S43.402A Unspecified sprain of left shoulder joint, initial encounter; W22.8XXA Striking against or struck by other objects, initial encounter; Y92.018 Other place in single-family (private) house as the place of occurrence of the external cause; J45.909 Unspecified asthma, uncomplicated; M54.30 Sciatica, unspecified side; Z98.84 Bariatric surgery status; Z87.891 Personal history of nicotine dependence
CPT/HCPCS: Q0162

== ENCOUNTER 2018-11-14 00:34 | Emergency (ER) | payer MEDICAID ==
[~2018-11-14] VITALS: Ht 165.1 cm; Wt 68.2 kg
[~2018-11-14 00:34] MED LIST changes: +ALBU17IN2 INH; +ASCO25TA PO; +BIOF4GEL2 EX; +CYCL10TA PO; +FERR325T16 PO; -FOLI1TAB4 PO; +FOLI1TAB5 PO; +HYDR-3713 PO; +IBUP1TAB7 PO; +METH1TAB40 PO; +NAPR-885 PO; +NAPR1TAB41 PO; +NAPR220C PO; -NAPR500T3 PO; +PRED20TA PO; +PROV10TA PO; +SENN1TAB2 PO; +VITA500T53 PO; +VITAD1000T PO; -ZOFR20TA PO; +ZOFR4TAB14 PO; +ZOFR4TAB16 PO
[2018-11-14 00:42] VITALS: BP 129/60
== END 2018-11-14 02:15 | disposition left against medical advice (07) ==
LOC: M ED 00:34
DX: M25.559 Pain in unspecified hip (principal); Z53.21 Procedure and treatment not carried out due to patient leaving prior to being seen by health care provider

== ENCOUNTER → 2018-12-17 | Outpatient (REF) | payer MEDICAID, OTHER ==
[~2018-12-17] MED LIST changes: +FOLI1TAB11 PO; -FOLI1TAB5 PO
[2018-12-17 19:05] LABS: BASO % 0.7 % (0.0-1.0); EOS # 0.1 10^3/uL (0.0-0.50); EOS % 1.3 % (0.0-3.0); HEMATOCRIT 29.5 % (36.0-47.0); LYMPH # 1.6 10^3/uL (1.5-4.5); LYMPH % 33.8 % (24.0-44.0); MEAN CORPUSCULAR HEMOGLOBIN 17.4 pg (27.0-33.0); MEAN CORPUSCULAR HGB CONC 27.1 g/dl (32.0-36.5); MONO # 0.5 10^3/uL (0.0-0.8); NEUTROPHILS # 2.5 10^3/uL (1.8-7.7); NEUTROPHILS % 54.2 % (36.0-66.0); PLATELET COUNT, AUTOMATED 397 10^3/uL (150-450); RED BLOOD COUNT 4.61 10^6/uL (4.00-5.40); WHITE BLOOD COUNT 4.6 10^3/uL (4.0-10.0)
[2018-12-17 19:13] LABS: ALBUMIN 3.8 GM/DL (3.2-5.2); ALT/SGPT 18 U/L (12-78); BILIRUBIN,TOTAL 0.4 MG/DL (0.2-1.0); BLOOD UREA NITROGEN 16 MG/DL (7-18); CALCIUM LEVEL 9.2 MG/DL (8.5-10.1); CARBON DIOXIDE LEVEL 21 MEQ/L (21-32); CHLORIDE LEVEL 109 MEQ/L (98-107); CHOLESTEROL LEVEL 140 MG/DL (<200); CHOLESTEROL RISK RATIO 2.592 (<5); CREATININE FOR GFR 0.95 MG/DL (0.55-1.30); GLOMERULAR FILTRATION RATE > 60.0 (>58); GLUCOSE, FASTING 91 MG/DL (70-100); HDL CHOLESTEROL 54 MG/DL (>40); LDL CHOLESTEROL 75 MG/DL (<100); NON-HDL-C 86 MG/DL; POTASSIUM SERUM 4.3 MEQ/L (3.5-5.1); SODIUM LEVEL 138 MEQ/L (136-145); TOTAL 25(OH) VITAMIN D 27.1 NG/ML (30.0-100.0); TOTAL PROTEIN 7.5 GM/DL (6.4-8.2); TRIGLYCERIDES LEVEL 53 MG/DL (<150)
== END ==
LOC: M LAB REF 16:23
PROVIDERS: ATTEND Nurse Practitioner Family
DX: Z13.9 Encounter for screening, unspecified (principal)

== ENCOUNTER 2019-03-24 11:47 | Emergency (ER) | payer OTHER ==
[~2019-03-24] VITALS: Ht 165.1 cm; Wt 69.1 kg
[~2019-03-24 11:47] MED LIST changes: -ASCO25TA PO; +HYDR-3715 PO; -NORCOTAB PO; -SENN1TAB2 PO; +SENN1TAB40 PO; +VITA1TAB23 PO; +VITA500T17 PO; -VITA500T53 PO
[2019-03-24] MEDS ORDERED: RIZA5TAB3 PO (11:56)
[2019-03-24] MEDS ORDERED: BUPR150T3 PO (11:56)
[2019-03-24] MEDS ORDERED: GABA-843 PO (11:56)
[2019-03-24] MEDS ORDERED: ROPI0.253 PO (11:56)
[2019-03-24] MEDS ORDERED: GI COCKTAIL 50ML BTL(HYOSCYAMINE/MAALOX/LIDOCAINE VISCOUS)(1:3:1) PO ONE (13:00)
[2019-03-24 13:33] LABS: BASO % 0.6 % (0.0-1.0); EOS % 1.1 % (0.0-3.0); HEMATOCRIT 24.4 % (36.0-47.0); LYMPH # 1.2 10^3/uL (1.5-4.5); LYMPH % 33.1 % (24.0-44.0); MEAN CORPUSCULAR HEMOGLOBIN 16.1 pg (27.0-33.0); MEAN CORPUSCULAR HGB CONC 25.8 g/dl (32.0-36.5); MEAN CORPUSCULAR VOLUME 62.4 fl (80.0-96.0); MONO # 0.3 10^3/uL (0.0-0.8); MONO % 7.7 % (0.0-5.0); NEUTROPHILS # 2.1 10^3/uL (1.8-7.7); NEUTROPHILS % 57.2 % (36.0-66.0); PLATELET COUNT, AUTOMATED 399 10^3/uL (150-450); RED BLOOD COUNT 3.91 10^6/uL (4.00-5.40); WHITE BLOOD COUNT 3.6 10^3/uL (4.0-10.0)
[2019-03-24 13:44] LABS: PROTHROMBIN TIME 13.3 SECONDS (12.1-14.4)
[2019-03-24 13:45] LABS: HEMOGLOBIN 6.3 g/dl (12.0-15.5); PARTIAL THROMBOPLASTIN TIME 29.1 SECONDS (25.4-37.6)
[2019-03-24 13:47] LABS: D-DIMER QUANT 493.36 ng/ml (<500)
[2019-03-24 14:01] LABS: ALBUMIN 3.2 GM/DL (3.2-5.2); ALT/SGPT 14 U/L (12-78); BILIRUBIN,DIRECT < 0.1 MG/DL (0.0-0.2); BILIRUBIN,TOTAL 0.5 MG/DL (0.2-1.0); BLOOD UREA NITROGEN 11 MG/DL (7-18); CALCIUM LEVEL 8.6 MG/DL (8.5-10.1); CARBON DIOXIDE LEVEL 24 MEQ/L (21-32); CHLORIDE LEVEL 115 MEQ/L (98-107); CK-MB VALUE MASS < 1.0 NG/ML (<3.6); CPK CREATINE PHOSPHOKINASE 57 U/L (26-192); CREATININE FOR GFR 0.54 MG/DL (0.55-1.30); FREE T4 0.98 NG/DL (0.76-1.46); GLOMERULAR FILTRATION RATE > 60.0 (>58); GLUCOSE, FASTING 83 MG/DL (70-100); LIPASE 77 U/L (73-393); MB/CK RELATIVE INDEX 1.75 (< OR =4); POTASSIUM SERUM 4.2 MEQ/L (3.5-5.1); SODIUM LEVEL 141 MEQ/L (136-145); TROPONIN I < 0.02 NG/ML (< 0.10)
[2019-03-24] MEDS ORDERED: METOCLOPRAMIDE INJ 10MG/2ML VIAL (J2765) IV ONE (14:15)
[2019-03-24] MEDS ORDERED: MORPHINE 2 MG/ML 1ML SYRINGE (J2270) IV PRN (14:15)
[2019-03-24] MEDS ORDERED: NS 1,000 ML IV ONE (14:15)
[2019-03-24 14:18] LABS: ERYTHROCYTE SEDIMENTATION RATE 15 mm/hr (0-20)
--- NOTE | 2019-03-24 14:29 | REP ---
REASON: Chest pain. COMPARISON: No priors. FINDINGS: The superior mediastinal structures are midline. The cardiac silhouette is unremarkable in size, shape, and position. The diaphragmatic surfaces of the lungs are regular, and the costophrenic angles are clear. The pulmonary bermeo are clear. The imaged osseous structures are intact. IMPRESSION: There is no acute cardiopulmonary disease. Electronically Signed by Minh Hollis DO 03/24/2019 04:37 P
[2019-03-24] MEDS ORDERED: FERR325T3 PO (15:32)
[2019-03-24] MEDS ORDERED: VITA1TAB23 PO (15:32)
[2019-03-24 15:40] LABS: FERRITIN 3 NG/ML (8-252); IRON (FE) 13 UG/DL (50-170); PERCENT SATURATION 2.9 % (13.2-45.0); TOTAL IRON BINDING CAPACITY 444 UG/DL (250-450)
[2019-03-24 15:58] VITALS: BP 126/72
--- NOTE | 2019-03-24 22:09 | ECGEPIP ---
Stationary ECG Study [facility] - ED Test Date: 2019-03-24 Pat Name: BABATUNDE ALVAREZ Department: Room: - Gender: F Bar Steward: : 1975 Requested By: JOEY PACK PA-C. Order Number: [id number] Reading MD: Boom Soriano Measurements Intervals [place] Rate: 63 P: 56 NC: 140 QRS: 37 QRSD: 80 T: 51 QT: 387 QTc: 398 Interpretive Statements SINUS RHYTHM WITH SINUS ARRHYTHMIA SIMILAR TO 03/27/18 Electronically Signed On 03-24-2019 22:09:28 EDT by Boom Soriano
== END 2019-03-24 16:00 | disposition left against medical advice (07) ==
LOC: M ED 11:47
DX: D64.9 Anemia, unspecified (principal); G43.909 Migraine, unspecified, not intractable, without status migrainosus; R07.89 Other chest pain; R06.02 Shortness of breath; J45.909 Unspecified asthma, uncomplicated; F32.9 Major depressive disorder, single episode, unspecified; Z98.84 Bariatric surgery status; Z88.0 Allergy status to penicillin; Z79.899 Other long term (current) drug therapy; Z87.891 Personal history of nicotine dependence
CPT/HCPCS: 36415; 71046; 80048; 80076; 82550; 82553; 82728; 83550; 83690; 84439; 84443; 85025; 85379; 85610; 85652; 85730; 86140; 86850; 86900; 86901; 86920; 93005; 93041; 94760; 96374; 96375; 99285; J2270; J2765

== ENCOUNTER 2019-07-08 14:03 | Emergency (ER) | payer OTHER ==
[~2019-07-08] VITALS: Ht 165.1 cm; Wt 79.2 kg
[~2019-07-08 14:03] MED LIST changes: -ALBU17IN2 INH; +BUPR150T3 PO; +CHOL100029 PO; +FERR325T3 PO; +GABA-843 PO; +PROV108A INH; +RIZA5TAB3 PO; +ROPI0.253 PO; -VITAD1000T PO
[2019-07-08] MEDS ORDERED: TOPI25TA10 (14:17)
[2019-07-08] MEDS ORDERED: FLUO10CA8 (14:17)
--- NOTE | 2019-07-08 15:39 | REP ---
REASON FOR EXAM: Pain and popping. COMPARISON EXAM: None. There is minimal tricompartmental marginal osteophytosis. There is minimal medial compartmental narrowing. There is no fracture. IMPRESSION: Minimal chronic changes. Electronically Signed by Minh Hollis DO 07/08/2019 04:36 P
[2019-07-08 16:29] VITALS: BP 120/73
== END 2019-07-08 16:30 | disposition home or self-care (01) ==
LOC: M ED 14:03
DX: M25.561 Pain in right knee (principal); G43.909 Migraine, unspecified, not intractable, without status migrainosus; J45.909 Unspecified asthma, uncomplicated; M54.30 Sciatica, unspecified side; F41.9 Anxiety disorder, unspecified; F32.9 Major depressive disorder, single episode, unspecified; Z98.84 Bariatric surgery status; Z88.0 Allergy status to penicillin; Z79.899 Other long term (current) drug therapy

== ENCOUNTER 2019-12-15 12:51 | Observation (INO) | payer OTHER ==
[~2019-12-15] VITALS: Ht 167.6 cm; Wt 74.3 kg
[2019-12-15] VITALS (9 sets, daily range): BP systolic 116–140; BP diastolic 55–73
[~2019-12-15 12:51] MED LIST changes: +FLUO10CA15; -RIZA5TAB3 PO; +RIZA5TAB52 PO; +SENN-53 PO; -SENN1TAB40 PO; +TOPI25TA10
[2019-12-15 14:58] LABS: HEMATOCRIT 24.7 % (36.0-47.0); MEAN CORPUSCULAR HEMOGLOBIN 14.6 pg (27.0-33.0); MEAN CORPUSCULAR HGB CONC 23.9 g/dl (32.0-36.5); MEAN CORPUSCULAR VOLUME 61.3 fl (80.0-96.0); PLATELET COUNT, AUTOMATED 323 10^3/uL (150-450); RED BLOOD COUNT 4.03 10^6/uL (4.00-5.40); WHITE BLOOD COUNT 4.1 10^3/uL (4.0-10.0)
[2019-12-15 15:04] LABS: HEMOGLOBIN 5.9 g/dl (12.0-15.5)
[2019-12-15] MEDS ORDERED: GABAPENTIN 300 MG CAP PO PRN (16:30)
[2019-12-15] MEDS ORDERED: RIZATRIPTAN MLT 10 MG TAB PO PRN (16:30)
[2019-12-15] MEDS ORDERED: rOPINIRole 0.25 MG TAB(REQUIP) PO PRN (16:30)
[2019-12-15 17:06] LABS: INR 1.13; PROTHROMBIN TIME 14.3 SECONDS (11.8-14.0)
[2019-12-15 17:07] LABS: PARTIAL THROMBOPLASTIN TIME 31.4 SECONDS (25.0-38.4)
--- NOTE | 2019-12-15 17:51 | REP ---
CHEST: Single view. There is no evidence of acute infiltrate. No pleural effusion is seen. The heart is normal in size. The mediastinal silhouette is unremarkable. The visualized osseous structures are intact. IMPRESSION: No acute pulmonary disease. Electronically Signed by Julián Fitzpatrick MD 12/17/2019 12:11 P
--- NOTE | 2019-12-15 18:04 | HPE ---
DATE OF ADMISSION: 12/15/2019 PRIMARY CARE PROVIDER: [facility]. PRINCIPAL DIAGNOSIS: Severe anemia. HISTORY: Beth Solomon is a 44-year-old with a history of gastric bypass who does not take supplemental iron, B12 or vitamin D as recommended. She is being admitted for transfusions and correction of presumed severe iron deficiency. She has been admitted for this before and despite adequate instructions on discharge has not taken her recommended replacement after gastric bypass. She also has apparently significant menstrual blood loss, for which "they are considering a hysterectomy." Review of the records shows that she was admitted for observation admissions for anemia June 2017 and March 2018. She had borderline low B12 levels June 2017. PAST MEDICAL HISTORY: Shows chronic anemia, restless leg syndrome, abbey-en-Y gastric bypass 2011, history of depression, and asthma. REVIEW OF SYSTEMS: Recent upper respiratory illness (URI) with cough, congestion, sore throat, and that actually precipitated her emergency room visit. She has severe menstrual blood loss. PAST SURGICAL HISTORY: Bilateral mammoplasty, gastric bypass 2011. FAMILY HISTORY: Father with diabetes. Mother with diabetes, thyroid disease, unspecified cancer. SOCIAL HISTORY: She quit smoking about 10 years ago. She works at a [employer]. She lives with her cousin and her boyfriend. MEDICATIONS: - gabapentin 300 mg three times a day as needed - rizatriptan 5 mg daily as needed for migraines - ropinirole 0.5 mg at bedtime for restless legs ALLERGIES: PENICILLINS. PHYSICAL EXAMINATION: VITAL SIGNS: Per flow sheet. She is alert, oriented, conversant, in no distress, heavily tattooed including facial tattoos and multiple piercings, none of which look infected. Pupils are equal and react to light. Tympanic membranes (TMs) and oropharynx benign. NECK: No masses. LUNGS: Clear. HEART: Regular rate and rhythm without murmur. ABDOMEN: Soft, nontender. No masses. No peripheral edema. Good distal pulses. LABORATORY DATA: White count 4.1, hemoglobin 5.9 with an MCV of 61, platelets 322, reticulocyte hemoglobin equivalent at 14.2 which I think is the lowest I have seen. Chemistries are pending. INR is 1.1. IMPRESSION AND PLAN: 1. Severe anemia, probably from iron deficiency as well as suspected B12 deficiency. After informed consent, she consents to transfusion. We had a long discussion in the presence of her parents, with the patient's consent, about the importance of maintaining compliance with supplemental iron, B12 and vitamin D. She expressed understanding of these instructions from previous. Review of the records shows that she has had 11 units of blood transfused over the last four years for this problem. 2. Dysfunctional uterine bleeding. Recommend STEAM CLEANER referral as an outpatient. 3. Restless leg syndrome. Continue with current regimen. 4. Migraine headaches. As-needed medication has been ordered. 5. History of abbey-en-Y gastric bypass. Nutritional consult has been ordered to help go over her dietary choices.
[2019-12-15 18:07] LABS: ALBUMIN 3.5 GM/DL (3.2-5.2); ALT/SGPT 13 U/L (12-78); BILIRUBIN,TOTAL 0.5 MG/DL (0.2-1.0); BLOOD UREA NITROGEN 12 MG/DL (7-18); CALCIUM LEVEL 9.2 MG/DL (8.5-10.1); CARBON DIOXIDE LEVEL 23 MEQ/L (21-32); CHLORIDE LEVEL 113 MEQ/L (98-107); CREATININE FOR GFR 0.53 MG/DL (0.55-1.30); FERRITIN 3 NG/ML (8-252); GLOMERULAR FILTRATION RATE > 60.0 (>58); GLUCOSE, FASTING 82 MG/DL (70-100); IRON (FE) 11 UG/DL (50-170); PERCENT SATURATION 2.4 % (13.2-45.0); POTASSIUM SERUM 4.2 MEQ/L (3.5-5.1); SODIUM LEVEL 140 MEQ/L (136-145); TOTAL IRON BINDING CAPACITY 455 UG/DL (250-450); TOTAL PROTEIN 6.7 GM/DL (6.4-8.2)
[2019-12-15 18:16] LABS: TOTAL 25(OH) VITAMIN D 21.8 NG/ML (30.0-100.0)
[2019-12-15 18:17] LABS: FOLATE 17.6 NG/ML (>5.4); VITAMIN B12 LEVEL 257 PG/ML (247-911)
[2019-12-15] MEDS ORDERED: IRON65TA2 PO (18:35)
[2019-12-15] MEDS ORDERED: VITA1TAB23 PO (18:35)
[2019-12-15] MEDS ORDERED: B-10TAB2 PO (18:35)
[2019-12-16] VITALS (12 sets, daily range): BP systolic 117–149; BP diastolic 60–93
[2019-12-16] MEDS ORDERED: PILL CUTTER 1 EACH XX PRN (05:15)
[2019-12-16 07:10] LABS: HEMOGLOBIN 7.8 g/dl (12.0-15.5); MEAN CORPUSCULAR HEMOGLOBIN 17.6 pg (27.0-33.0); MEAN CORPUSCULAR HGB CONC 26.9 g/dl (32.0-36.5); MEAN CORPUSCULAR VOLUME 65.5 fl (80.0-96.0); PLATELET COUNT, AUTOMATED 320 10^3/uL (150-450); RED BLOOD COUNT 4.43 10^6/uL (4.00-5.40); WHITE BLOOD COUNT 4.7 10^3/uL (4.0-10.0)
[2019-12-16 07:36] LABS: BLOOD UREA NITROGEN 12 MG/DL (7-18); CALCIUM LEVEL 9.1 MG/DL (8.5-10.1); CARBON DIOXIDE LEVEL 24 MEQ/L (21-32); CHLORIDE LEVEL 112 MEQ/L (98-107); CREATININE FOR GFR 0.64 MG/DL (0.55-1.30); GLOMERULAR FILTRATION RATE > 60.0 (>58); GLUCOSE, FASTING 93 MG/DL (70-100); MAGNESIUM LEVEL 2.1 MG/DL (1.8-2.4); POTASSIUM SERUM 3.9 MEQ/L (3.5-5.1); SODIUM LEVEL 139 MEQ/L (136-145)
[2019-12-16] MEDS ORDERED: INFLUENZA QUADRIVALENT PF VACCINE 0.5ML SYRINGE (90686) IM ONE (09:00)
[2019-12-16] MEDS ORDERED: NS 1,000 ML IV SCH (10:05)
--- NOTE | 2019-12-16 17:18 | DS.PDOC ---
Discharge Summary General Date of Admission Dec 15, 2019 at 12:52 Date of Discharge 12/16/19 Discharge Summary PROCEDURES PERFORMED DURING STAY: [None]. ADMITTING DIAGNOSES: Severe anemia Dysfunctional uterine bleeding Restless leg syndrome Migraine headaches History of abbey-en-Y gastric bypass DISCHARGE DIAGNOSES: Severe anemia Dysfunctional uterine bleeding Restless leg syndrome Migraine headaches History of abbey-en-Y gastric bypass COMPLICATIONS/CHIEF COMPLAINT: Anemia Iron Deficiency Inadequate Dietary Intake. HISTORY OF PRESENT ILLNESS: Beth Solomon is a 44-year-old with a history of gastric bypass who does not take supplemental iron, B12 or vitamin D as recommended. She is being admitted for transfusions and correction of presumed severe iron deficiency. She has been admitted for this before and despite adequate instructions on discharge has not taken her recommended replacement after gastric bypass. She also has apparently significant menstrual blood loss, for which "they are considering a hysterectomy." Review of the records shows that she was admitted for observation admissions for anemia June 2017 and March 2018. She had borderline low B12 levels June 2017. HOSPITAL COURSE: During hospital stay following issue addressed 1. Severe anemia, probably from iron deficiency as well as suspected B12 deficiency. After informed consent, she consents to transfusion. We had a long discussion in the presence of her parents, with the patient's consent, about the importance of maintaining compliance with supplemental iron, B12 and vitamin D. She expressed understanding of these instructions from previous. Review of the records shows that she has had 11 units of blood transfused over the last four years for this problem. 2. Dysfunctional uterine bleeding. Recommend CHEMICAL LABORATORY SCIENTIST referral as an outpatient. 3. Restless leg syndrome. Continue with current regimen. 4. Migraine headaches. As-needed medication has been ordered. 5. History of abbey-en-Y gastric bypass. Nutritional consult has been ordered to help go over her dietary choices. DISCHARGE MEDICATIONS: Please see below. ALLERGIES: Please see below. PHYSICAL EXAMINATION ON DISCHARGE: VITAL SIGNS: Please see below. Objective: VITAL SIGNS: Please see below. GENERAL APPEARANCE: Well-nourished, well-developed, not in apparent distress HEENT: Normocephalic, atraumatic. Mucous members moist and pink CARDIOVASCULAR: Regular rate and rhythm. No murmurs, rubs or gallops. Radial pulses are intact. There is no lower extremity edema LUNGS: Diminished lung sounds ABDOMEN: Abdomen is soft and nontender. MUSCULOSKELETAL: Range of motion is intact in all 4 extremities NEUROLOGICAL: Cranial nerves II-12 are grossly intact. Speech is not dysarthric LABORATORY DATA: Please see below. IMAGING: none PROGNOSIS: Favorable ACTIVITY: As tolerated. DIET: regular DISCHARGE PLAN: stable DISPOSITION: home DISCHARGE INSTRUCTIONS: continue taking prescribed meds ITEMS TO FOLLOWUP ON ON OUTPATIENT: Repeat CBC in 2 days. DISCHARGE CONDITION: Stable TIME SPENT ON DISCHARGE: Greater than 20 minutes. Vital Signs/I&Os Vital Signs Date Time Temp Pulse Resp B/P (MAP) Pulse Ox O2 Delivery O2 Flow Rate FiO2 12/16/19 15:20 98.2 72 18 140/72 98 Room Air l I&O- Last 24 Hours up to 6 AM 12/16/19 06:00 Intake Total 1860 ml Output Total 1000 ml Balance 860 ml Laboratory Data Labs 24H Laboratory Tests 2 12/15/19 17:28: Reticulocyte # (auto) 53.8, Percent Reticulocyte Count 1.4, Reticulocyte Hemoglobin Equivalent 14.2L, Anion Gap 4L, Glomerular Filtration Rate > 60.0, Calcium Level 9.2, Iron Level 11L, Total Iron Binding Capacity 455H, Transferrin % Saturation 2.4L, Ferritin 3L, Total Bilirubin 0.5, Aspartate Amino Transf (AST/SGOT) 9, Alanine Aminotransferase (ALT/SGPT) 13, Alkaline Phosphatase 61, Total Protein 6.7, Albumin 3.5, Albumin/Globulin Ratio 1.09, Vitamin B12 Level 257, 25-Hydroxy Vitamin D Total 21.8L, Folate 17.6 12/16/19 06:38: Anion Gap 3L, Glomerular Filtration Rate > 60.0, Calcium Level 9.1, Nucleated Red Blood Cells % (auto) 0.0, Magnesium Level 2.1 CBC/BMP Laboratory Tests 12/15/19 17:28 12/16/19 06:38 Discharge Medications Scheduled Ascorbic Acid (Vitamin C) 250 Mg Tablet, 1 DOSE PO DAILY, (Reported) Ferrous Sulfate (Iron) 325 Mg Tablet, 1 TAB PO DAILY, (Reported) Vit B Complex 100 Combo No.2 (B-100 Complex) 100 Mg Tablet.er, 1 TAB PO DAILY, (Reported) Scheduled PRN Gabapentin (Gabapentin) 300 Mg Capsule, 300 MG PO TID PRN for LEG PAIN, (Reported) Rizatriptan Benzoate (Rizatriptan) 5 Mg Tab.rapdis, 5 MG PO DAILY PRN for MIGRAINE, (Reported) Ropinirole HCl (Ropinirole HCl) 0.25 Mg Tablet, 0.5 MG PO QHS PRN for RESTLESS LEGS, (Reported) Allergies Coded Allergies: Penicillins (Verified Allergy, Intermediate, CHILDHOOD REACTION (HIVES?), 12/15/19) MAC NICHOLS DO Dec 16, 2019 17:18
[2019-12-19 14:08] LABS: Methylmalonic Acid 115 nmol/L (0-378)
== END 2019-12-16 19:25 | disposition home or self-care (01) ==
LOC: M ED 12:51 → M ED INP 12:52 → ENRESERV 17:19 → M PED 18:15
PROVIDERS: ADMIT Family Medicine; ATTEND Internal Medicine
DX: D50.9 Iron deficiency anemia, unspecified (principal); N93.8 Other specified abnormal uterine and vaginal bleeding; Z98.84 Bariatric surgery status; G25.81 Restless legs syndrome; G43.909 Migraine, unspecified, not intractable, without status migrainosus; Z87.891 Personal history of nicotine dependence; Z79.899 Other long term (current) drug therapy; Z88.0 Allergy status to penicillin
CPT/HCPCS: 36415; 36430; 71045; 80048; 80053; 82306; 82607; 82728; 82746; 83550; 83735; 83921; 85027; 85046; 85610; 85730; 86850; 86900; 86901; 86920; 99285; P9016

== ENCOUNTER → 2019-12-18 | Outpatient (CLI) | payer OTHER ==
[~2019-12-18] MED LIST changes: +B-10TAB2 PO; +IRON65TA2 PO
[2019-12-18 15:32] LABS: HEMATOCRIT 38.8 % (36.0-47.0); HEMOGLOBIN 10.3 g/dl (12.0-15.5); MEAN CORPUSCULAR HEMOGLOBIN 18.6 pg (27.0-33.0); MEAN CORPUSCULAR HGB CONC 26.5 g/dl (32.0-36.5); MEAN CORPUSCULAR VOLUME 69.9 fl (80.0-96.0); PLATELET COUNT, AUTOMATED 305 10^3/uL (150-450); RED BLOOD COUNT 5.55 10^6/uL (4.00-5.40); WHITE BLOOD COUNT 5.3 10^3/uL (4.0-10.0)
== END ==
LOC: M LAB 14:11
PROVIDERS: ATTEND Internal Medicine
DX: D64.9 Anemia, unspecified (principal)

== ENCOUNTER → 2020-02-11 | Outpatient (REF) ==
[2020-02-13 08:13] LABS: HERPES ZOSTER, VARICELLA IgG <135 index (Immune >165)
[2020-02-13 09:06] LABS: RUBELLA IgG QUALITATIVE IMMUNE (IMMUNE)
== END ==
LOC: M LAB 15:04
PROVIDERS: ATTEND Nurse Practitioner Adult Health
DX: Z00.00 Encounter for general adult medical examination without abnormal findings (principal)

== ENCOUNTER 2021-05-11 12:25 | Emergency (ER) | payer OTHER ==
[~2021-05-11] VITALS: Ht 165.1 cm; Wt 86.4 kg
[~2021-05-11 12:25] MED LIST changes: +ASCO250T20 PO; +BUPR150T12 PO; -BUPR150T3 PO; +CYCL-707 PO; -CYCL10TA PO; +FERR324T21 PO; -FERR325T16 PO; -FLUO10CA15; +FLUO10CA16; +GABA-282 PO; -GABA-843 PO; +METH-1164 PO; -METH1TAB40 PO; +VITA-243 PO; -VITA1TAB23 PO; +VITA250T20 PO; -VITA500T PO
--- NOTE | 2021-05-11 14:02 | REP ---
INDICATION: SOB/cough. COMPARISON: Comparison chest x-ray 15 December 2019.. TECHNIQUE: Sitting AP portable chest x-ray. FINDINGS: Lungs are well inflated and clear. The pleural angles are sharp. Heart size is normal. EKG electrodes are seen. Pulmonary vasculature is not increased. IMPRESSION: Negative portable chest x-ray. <Electronically signed by Robert Bragg > 05/11/21 [id number]
[2021-05-11 14:47] VITALS: BP 140/69
[2021-05-11] MEDS ORDERED: VENTAER INH (15:47)
== END 2021-05-11 16:06 | disposition home or self-care (01) ==
LOC: M ED 12:25
DX: B34.9 Viral infection, unspecified (principal); J45.909 Unspecified asthma, uncomplicated; F41.9 Anxiety disorder, unspecified; F33.9 Major depressive disorder, recurrent, unspecified; Z79.899 Other long term (current) drug therapy; Z88.8 Allergy status to other drugs, medicaments and biological substances; Z88.0 Allergy status to penicillin

== ENCOUNTER 2021-06-02 13:32 | Emergency (ER) | payer OTHER ==
[~2021-06-02] VITALS: Ht 165.1 cm; Wt 81.8 kg
[2021-06-02 13:32] VITALS: BP 161/74
[~2021-06-02 13:32] MED LIST changes: +VENTAER INH
== END 2021-06-02 16:12 | disposition left against medical advice (07) ==
LOC: M ED 13:32
DX: Z53.21 Procedure and treatment not carried out due to patient leaving prior to being seen by health care provider (principal)

== ENCOUNTER → 2021-08-10 | Outpatient (REF) | payer OTHER ==
[~2021-08-10] MED LIST changes: +BUSP10TA; +CVS2500C PO
[2021-08-10 17:51] LABS: AMORPHOUS SEDIMENT SMALL (NEGATIVE); APPEARANCE, URINE TURBID (CLEAR); BACTERIA, URINE AUTO 2+ (NEGATIVE); BILIRUBIN, URINE AUTO NEGATIVE (NEGATIVE); BLOOD, URINE BLOOD 1+ (NEGATIVE); COLOR, URINE YELLOW (YELLOW); GLUCOSE, URINE (UA) AUTO NEGATIVE (NEGATIVE); KETONE, URINE AUTO NEGATIVE (NEGATIVE); LEUKOCYTE ESTERASE, URINE AUTO NEGATIVE (NEGATIVE); MUCUS, URINE LARGE (NEGATIVE); NITRITE, URINE AUTO POSITIVE (NEGATIVE); PROTEIN, URINE AUTO 1+ mg/dL (NEGATIVE); RBC, URINE AUTO 2 /HPF (0-3); SPECIFIC GRAVITY URINE AUTO 1.025 (1.002-1.035); SQUAMOUS EPITHELIAL CELL UR AU 23 /HPF (0-6); WBC, URINE AUTO 3 /HPF (0-3)
== END ==
LOC: M LAB REF 17:23
PROVIDERS: ATTEND Nurse Practitioner Family
DX: R30.0 Dysuria (principal)

== ENCOUNTER → 2022-03-14 | Outpatient (CLI) | payer OTHER ==
[~2022-03-14] MED LIST changes: +BARIUM SULFATE 700 MG TABLET (E-Z-DISK) As Ordered ONE; +E-Z-PAQUE 96% w/w SUSP 176GM BTL As Ordered ONE; -FLUO10CA16; +FLUO10CA18; +K 10100T PO; +PROZ20CA11 PO; +TRAZ-252; +VARIBAR NECTAR 40% w/v 240ML SUSP BTL As Ordered ONE; +VARIBAR PUDDING 40% w/v 230ML TUBE As Ordered ONE; +[UNRECOGNIZED DRUG - CODE] PO
== END ==
LOC: M RAD 10:14
PROVIDERS: ATTEND Pediatrics
DX: R13.10 Dysphagia, unspecified (principal)

== ENCOUNTER → 2022-03-28 | Outpatient (CLI) | payer OTHER ==
[~2022-03-28] MED LIST changes: -BARIUM SULFATE 700 MG TABLET (E-Z-DISK) As Ordered ONE; -VARIBAR NECTAR 40% w/v 240ML SUSP BTL As Ordered ONE; -VARIBAR PUDDING 40% w/v 230ML TUBE As Ordered ONE
== END ==
LOC: M RAD 07:35
PROVIDERS: ATTEND Pediatrics
DX: R13.10 Dysphagia, unspecified (principal)

== ENCOUNTER → 2022-07-03 | Outpatient (CLI) | payer OTHER ==
[~2022-07-03] MED LIST changes: +ALPR0.5T3 PO; +ATOM25CA7 PO; -BUSP10TA; +BUSP10TA PO; -E-Z-PAQUE 96% w/w SUSP 176GM BTL As Ordered ONE; +PRAZ2CAP PO; -TRAZ-252; +TRAZ-252 PO; +XANA1TAB2 PO
== END ==
LOC: M LABSMTC 11:18
PROVIDERS: ATTEND Anesthesiology
DX: Z11.52 Encounter for screening for COVID-19 (principal)

== ENCOUNTER → 2022-07-07 | Day surgery (SDC) | payer OTHER ==
[~2022-07-07] VITALS: Ht 167.6 cm; Wt 77.1 kg
[~2022-07-07] MED LIST changes: +LIDOCAINE 2% 100MG/5ML SDV (FOR ANES.) As Ordered ONE; +NS 1,000 ML IV ONE; +ePHEDrine SULFATE 25 MG/5 ML(5MG/ML) SYRINGE As Ordered ONE; +fentaNYL 100 MCG/2 ML INJECTION As Ordered ONE; +propofoL 200 MG/20 ML VIAL As Ordered ONE
== END | disposition home or self-care (01) ==
LOC: M OPP 08:31
PROVIDERS: ATTEND Internal Medicine Gastroenterology
DX: Z12.11 Encounter for screening for malignant neoplasm of colon (principal); Z53.8 Procedure and treatment not carried out for other reasons

== ENCOUNTER → 2022-08-03 | Outpatient (CLI) | payer OTHER ==
[~2022-08-03] MED LIST changes: +ALBU6.7H6 INH; -LIDOCAINE 2% 100MG/5ML SDV (FOR ANES.) As Ordered ONE; -NS 1,000 ML IV ONE; -PROV108A INH; -ePHEDrine SULFATE 25 MG/5 ML(5MG/ML) SYRINGE As Ordered ONE; -fentaNYL 100 MCG/2 ML INJECTION As Ordered ONE; -propofoL 200 MG/20 ML VIAL As Ordered ONE
== END ==
LOC: M LABSMTC 11:16
PROVIDERS: ATTEND Anesthesiology
DX: Z01.812 Encounter for preprocedural laboratory examination (principal); Z20.822 Contact with and (suspected) exposure to COVID-19

== ENCOUNTER 2022-08-08 09:22 | Day surgery (SDC) | payer OTHER ==
[~2022-08-08] VITALS: Ht 165.1 cm; Wt 74.8 kg
[~2022-08-08 09:22] MED LIST changes: +NS 1,000 ML IV ONE
[2022-08-08] MEDS ORDERED: propofoL 200 MG/20 ML VIAL As Ordered ONE (09:53)
[2022-08-08] MEDS ORDERED: LIDOCAINE 2% 100MG/5ML SDV (FOR ANES.) As Ordered ONE (09:53)
[2022-08-08 11:00] VITALS: BP 112/58
== END 2022-08-08 11:04 | disposition home or self-care (01) ==
LOC: M OPP 09:22
PROVIDERS: ATTEND Internal Medicine Gastroenterology
DX: Z12.11 Encounter for screening for malignant neoplasm of colon (principal); K22.89 Other specified disease of esophagus; Z98.0 Intestinal bypass and anastomosis status; Z79.899 Other long term (current) drug therapy; Z88.0 Allergy status to penicillin; Z88.8 Allergy status to other drugs, medicaments and biological substances; K50.90 Crohn's disease, unspecified, without complications; Z80.0 Family history of malignant neoplasm of digestive organs; I10 Essential (primary) hypertension; F32.9 Major depressive disorder, single episode, unspecified; F41.9 Anxiety disorder, unspecified; G43.909 Migraine, unspecified, not intractable, without status migrainosus; Z80.3 Family history of malignant neoplasm of breast; Z80.41 Family history of malignant neoplasm of ovary

== ENCOUNTER 2022-08-18 14:15 | Inpatient (IN) | payer OTHER ==
[~2022-08-18] VITALS: Ht 165.1 cm; Wt 72.4 kg
[~2022-08-18 14:15] MED LIST changes: -NS 1,000 ML IV ONE
[2022-08-18] MEDS ORDERED: ONDANSETRON 4MG 2ML VIAL IV ONE (16:40)
[2022-08-18] MEDS ORDERED: NS 1,000 ML IV ONE (16:40)
[2022-08-18 17:32] LABS: BASO % 0.6 % (0.0-1.0); EOS % 0.4 % (0.0-3.0); HEMATOCRIT 29.9 % (36.0-47.0); HEMOGLOBIN 8.3 g/dl (12.0-15.5); LYMPH # 1.2 10^3/uL (1.5-5.0); LYMPH % 23.2 % (24.0-44.0); MEAN CORPUSCULAR HEMOGLOBIN 18.9 pg (27.0-33.0); MEAN CORPUSCULAR HGB CONC 27.8 g/dl (32.0-36.5); MEAN CORPUSCULAR VOLUME 68.3 fl (80.0-96.0); MONO # 0.3 10^3/uL (0.0-0.8); MONO % 6.3 % (2.0-8.0); NEUTROPHILS # 3.6 10^3/uL (1.5-8.5); NEUTROPHILS % 69.1 % (36.0-66.0); PLATELET COUNT, AUTOMATED 406 10^3/uL (150-450); RED BLOOD COUNT 4.38 10^6/uL (4.00-5.40); WHITE BLOOD COUNT 5.2 10^3/uL (4.0-10.0)
[2022-08-18 17:47] LABS: INR 1.03; PROTHROMBIN TIME 13.9 SECONDS (12.7-14.5)
[2022-08-18 17:48] LABS: PARTIAL THROMBOPLASTIN TIME 29.5 SECONDS (25.9-37.0)
[2022-08-18] MEDS ORDERED: PRAZ2CAP PO (18:16)
[2022-08-18] MEDS ORDERED: ALPR0.5T3 PO (18:16)
[2022-08-18] MEDS ORDERED: HOME MED LIST COMPLETE! XX SCH (18:25)
[2022-08-18 18:28] LABS: ALBUMIN 3.8 GM/DL (3.2-5.2); ALT/SGPT 22 U/L (12-78); BILIRUBIN,TOTAL 0.4 MG/DL (0.2-1.0); BLOOD UREA NITROGEN 16 MG/DL (7-18); CALCIUM LEVEL 10.3 MG/DL (8.5-10.1); CARBON DIOXIDE LEVEL 24 MEQ/L (21-32); CHLORIDE LEVEL 107 MEQ/L (98-107); CREATININE FOR GFR 0.75 MG/DL (0.55-1.30); GLOMERULAR FILTRATION RATE > 60.0 (>58); GLUCOSE, FASTING 92 MG/DL (70-100); POTASSIUM SERUM 3.8 MEQ/L (3.5-5.1); SODIUM LEVEL 137 MEQ/L (136-145); TOTAL PROTEIN 7.4 GM/DL (6.4-8.2)
[2022-08-18 18:37] LABS: HCG, SERUM QUALITATIVE NEGATIVE (NEGATIVE)
[2022-08-18] MEDS ORDERED: PANTOPRAZOLE 40MG VIAL IV ONE (18:45)
[2022-08-18] MEDS ORDERED: ISOVUE-370 76% 100ML VIAL As Ordered ONE (18:49)
[2022-08-18] MEDS: NS 1,000 ML IV SCH ×2 (20:10→23:15)
[2022-08-19] VITALS (12 sets, daily range): BP systolic 112–155; BP diastolic 60–89
[2022-08-19 00:59] LABS: HEMATOCRIT 25.9 % (36.0-47.0); HEMOGLOBIN 7.3 g/dl (12.0-15.5)
[2022-08-19 05:56] LABS: HEMOGLOBIN 7.1 g/dl (12.0-15.5); MEAN CORPUSCULAR HEMOGLOBIN 19.5 pg (27.0-33.0); MEAN CORPUSCULAR HGB CONC 28.4 g/dl (32.0-36.5); MEAN CORPUSCULAR VOLUME 68.5 fl (80.0-96.0); RED BLOOD COUNT 3.65 10^6/uL (4.00-5.40); WHITE BLOOD COUNT 3.1 10^3/uL (4.0-10.0)
[2022-08-19 06:27] LABS: PLATELET COUNT, AUTOMATED 281 10^3/uL (150-450)
[2022-08-19 06:36] LABS: BLOOD UREA NITROGEN 8 MG/DL (7-18); CARBON DIOXIDE LEVEL 23 MEQ/L (21-32); CHLORIDE LEVEL 111 MEQ/L (98-107); CREATININE FOR GFR 0.55 MG/DL (0.55-1.30); GLOMERULAR FILTRATION RATE > 60.0 (>58); GLUCOSE, FASTING 87 MG/DL (70-100); POTASSIUM SERUM 3.8 MEQ/L (3.5-5.1); SODIUM LEVEL 138 MEQ/L (136-145); THYROID STIMULATING HORMONE 0.762 uIU/ML (0.358-3.740)
[2022-08-19] MEDS ORDERED: PANTOPRAZOLE 40MG VIAL IV SCH (09:00)
[2022-08-19] MEDS ORDERED: propofoL 200 MG/20 ML VIAL As Ordered ONE (09:13)
[2022-08-19] MEDS ORDERED: LIDOCAINE 2% 100MG/5ML SDV (FOR ANES.) As Ordered ONE (09:13)
[2022-08-19] MEDS ORDERED: SEVOFLURANE INHAL SOLN 250 ML BTL As Ordered ONE (09:13)
[2022-08-19] MEDS ORDERED: fentaNYL 100 MCG/2 ML INJECTION As Ordered ONE (09:13)
[2022-08-19] MEDS ORDERED: ONDANSETRON 4MG 2ML VIAL IV PRN (09:20)
[2022-08-19] MEDS ORDERED: LR 1,000 ML IV SCH (09:20)
[2022-08-19] MEDS: NS 1,000 ML IV SCH (10:07)
[2022-08-19] MEDS ORDERED: MAGNESIUM CITRATE 300 ML BTL PO ONE (10:20)
[2022-08-19] MEDS ORDERED: POLYETHYLENE GLYCOL (MIRALAX) 238GM BOTTLE PO ONE (11:30)
[2022-08-19 12:20] LABS: HEMATOCRIT 29.1 % (36.0-47.0); HEMOGLOBIN 8.4 g/dl (12.0-15.5)
[2022-08-19 12:47] LABS: PERCENT SATURATION 4.5 % (13.2-45.0)
[2022-08-19] MEDS: ONDANSETRON 4MG 2ML VIAL IV PRN ×2 (13:46→19:50)
[2022-08-19] MEDS: RIZATRIPTAN MLT 10 MG TAB PO PRN (16:23)
[2022-08-19 17:03] LABS: HEMATOCRIT 29.4 % (36.0-47.0); HEMOGLOBIN 8.5 g/dl (12.0-15.5)
[2022-08-19] MEDS ORDERED: MIRALAX *UNIT DOSE* 17GM PACKET PO ONE (20:00)
[2022-08-19] MEDS ORDERED: METOCLOPRAMIDE INJ 10MG/2ML VIAL (J2765 PER 1) IV PRN (20:50)
[2022-08-19 23:25] LABS: HEMATOCRIT 27.2 % (36.0-47.0); HEMOGLOBIN 7.9 g/dl (12.0-15.5)
[2022-08-20 05:38] VITALS: BP 132/71
[2022-08-20 07:01] LABS: HEMATOCRIT 28.2 % (36.0-47.0); HEMOGLOBIN 8.2 g/dl (12.0-15.5)
[2022-08-20 07:25] LABS: BLOOD UREA NITROGEN 5 MG/DL (7-18); CALCIUM LEVEL 9.3 MG/DL (8.5-10.1); CARBON DIOXIDE LEVEL 23 MEQ/L (21-32); CHLORIDE LEVEL 110 MEQ/L (98-107); CREATININE FOR GFR 0.64 MG/DL (0.55-1.30); GLOMERULAR FILTRATION RATE > 60.0 (>58); GLUCOSE, FASTING 75 MG/DL (70-100); POTASSIUM SERUM 3.9 MEQ/L (3.5-5.1); SODIUM LEVEL 140 MEQ/L (136-145)
[2022-08-20] MEDS ORDERED: FERRIC CARBOXYMALTOSE INJ 750 MG, VIAL MATE ADAPTER 1 EACH in NS 250 ML IV ONE (08:00)
[2022-08-20] MEDS ORDERED: FLUoxetine 20MG CAP PO SCH (09:00)
[2022-08-20] MEDS: LACTULOSE 20 GM/30 ML SYRUP UD PO SCH ×4 (09:19→20:42)
[2022-08-20] MEDS: RIZATRIPTAN MLT 10 MG TAB PO PRN (09:20)
[2022-08-20 11:03] LABS: HEMATOCRIT 29.9 % (36.0-47.0); HEMOGLOBIN 8.7 g/dl (12.0-15.5)
[2022-08-20] MEDS: METOCLOPRAMIDE INJ 10MG/2ML VIAL (J2765 PER 1) IV SCH ×3 (12:09→23:33)
[2022-08-20] MEDS ORDERED: TOPIRAMATE (TopAMAX) 25 MG TAB PO SCH (21:00)
[2022-08-20 21:54] VITALS: BP 165/76
[2022-08-21] MEDS: LACTULOSE 20 GM/30 ML SYRUP UD PO SCH ×4 (00:12→13:00)
[2022-08-21] MEDS: METOCLOPRAMIDE INJ 10MG/2ML VIAL (J2765 PER 1) IV SCH ×2 (05:03→11:00)
[2022-08-21 06:00] VITALS: BP 133/72
[2022-08-21 09:45] LABS: PTH INTACT 124.5 PG/ML (18.5-88.0); TOTAL 25(OH) VITAMIN D 40.2 NG/ML (30.0-100.0)
[2022-08-21 15:15] VITALS: BP 149/97
[2022-08-21] MEDS ORDERED: TOPI25CA5 PO (15:48)
[2022-08-21] MEDS ORDERED: CALC-190 PO (15:48)
[2022-08-21] MEDS ORDERED: REGL5TAB2 PO (15:48)
[2022-08-21 16:45] VITALS: BP 136/69
== END 2022-08-21 16:45 | disposition home or self-care (01) | DRG 663 ==
LOC: M ED 14:15 → M ED INP 21:38 → ENRESERV 08-19 08:33 → M MS5PR 08-19 10:00
PROVIDERS: ADMIT Internal Medicine; ATTEND Internal Medicine
PROC: 30233N1 Transfusion of Nonautologous Red Blood Cells into Peripheral Vein, Percutaneous Approach (ICD-10-PCS; 2022-08-18)
PROC: 0DJ08ZZ Inspection of Upper Intestinal Tract, Via Natural or Artificial Opening Endoscopic (ICD-10-PCS; principal; 2022-08-19 08:30)
PROC: 0DJD8ZZ Inspection of Lower Intestinal Tract, Via Natural or Artificial Opening Endoscopic (ICD-10-PCS; 2022-08-21)
DX: D62 Acute posthemorrhagic anemia (principal); Q43.8 Other specified congenital malformations of intestine; N28.1 Cyst of kidney, acquired; K91.1 Postgastric surgery syndromes; F41.9 Anxiety disorder, unspecified; G43.909 Migraine, unspecified, not intractable, without status migrainosus; K92.1 Melena; N92.0 Excessive and frequent menstruation with regular cycle; D50.9 Iron deficiency anemia, unspecified; D18.03 Hemangioma of intra-abdominal structures; E21.1 Secondary hyperparathyroidism, not elsewhere classified; K80.20 Calculus of gallbladder without cholecystitis without obstruction; Z88.0 Allergy status to penicillin; Z88.6 Allergy status to analgesic agent; Z79.899 Other long term (current) drug therapy; Z98.84 Bariatric surgery status